=== PATIENT | male | born 1970 | race Caucasian/White ===

== ENCOUNTER 2020-06-23 17:52 | Outpatient (REF) | payer OTHER, SELFPAY | END 2020-06-23 17:53 | disposition home or self-care (01) | LOC: HO.LAB 17:52 | PROVIDERS: Visit Provider Internal Medicine | DX: Z20.828 Contact with and (suspected) exposure to other viral communicable diseases (principal) | CPT/HCPCS: U0003 ==

== ENCOUNTER 2020-06-29 11:56 | Outpatient (REF) | payer OTHER, SELFPAY | END 2020-06-29 11:57 | disposition home or self-care (01) | LOC: HO.LAB 11:56 | PROVIDERS: PCP Internal Medicine; Visit Provider Internal Medicine | DX: Z20.828 Contact with and (suspected) exposure to other viral communicable diseases (principal) | CPT/HCPCS: C9803; U0003 ==

== ENCOUNTER 2020-07-06 11:44 | Outpatient (REF) | payer OTHER, SELFPAY | END 2020-07-06 11:45 | disposition home or self-care (01) | LOC: HO.LAB 11:44 | PROVIDERS: PCP Internal Medicine; Visit Provider Internal Medicine | DX: Z20.828 Contact with and (suspected) exposure to other viral communicable diseases (principal) | CPT/HCPCS: C9803; U0003 ==

== ENCOUNTER 2020-07-12 14:41 | Outpatient (REF) | payer OTHER, SELFPAY | END 2020-07-12 14:42 | disposition home or self-care (01) | LOC: HO.LAB 14:41 | PROVIDERS: Visit Provider Internal Medicine | DX: Z20.828 Contact with and (suspected) exposure to other viral communicable diseases (principal) | CPT/HCPCS: C9803; U0003 ==

== ENCOUNTER 2020-09-06 16:21 | Outpatient (REF) | payer OTHER, SELFPAY | END 2020-09-06 16:22 | disposition home or self-care (01) | LOC: HO.LAB 16:21 | PROVIDERS: Visit Provider Internal Medicine | DX: Z20.822 Contact with and (suspected) exposure to COVID-19 (principal) | CPT/HCPCS: 36415; C9803; U0003 ==

== ENCOUNTER 2023-05-20 10:13 | Outpatient (AMB) | payer MEDICAID, SELFPAY ==
--- NOTE | 2023-05-20 10:15 | A.OFFVIS_ITS ---
Intake Vital Signs 05/20/23 10:28 Height 5 ft 6 in Weight 190 lb 0.615 oz BMI 30.7 BP 132/82 Blood Pressure Location Lt brachial Position Sitting Pulse 72 Intake Visit Reasons: Umbilical hernia Intake Note: Patient is seen in office for evaluation and treatment of an umbilical hernia. 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 He initially noted the lump approximately 4 months ago and now feels the lump is nearly always protruding. Reports occasional discomfort associated with the lump and reports hearing gas when the lump is reduced. He denies nausea, vomiting, fever or chills. He denies any bowel changes recently but is scheduled for colonoscopy and upper endoscopy with Dr. Fortune. He denies any previous abdominal surgery at this location. He is status post appendectomy as a child. [facility] Surgical History History of appendectomy Social History Alcohol intake: never Patient Tobacco Use Status: Current everyday Tobacco user Review of Systems Const All systems reviewed & are unremarkable except as noted in HPI and below Denies chills, Denies fever(s), Denies headache(s), Denies poor appetite and Denies weakness ENT Denies headache(s) Card Denies chest pain, Denies irregular heart rhythm, Denies palpitations and Denies dyspnea Resp Denies cough, Denies excessive phlegm production and Denies dyspnea GI Details: Palpable umbilical hernia measuring approximately 1 to 1.5 cm in diameter. Hernia is reducible with light pressure but returns with Valsalva maneuvers. No skin change or tenderness. Denies abdominal pain, Denies bloating, Denies change in bowel habits, Denies constipation, Denies heartburn, Denies diarrhea, Denies nausea and Denies vomiting Denies difficulty urinating and Denies urinary frequency Musc Denies back pain, Denies muscle weakness and Denies numbness Skin/Breast Denies changing lesions and Denies unusual bruising Neuro Denies headache(s), Denies numbness, Denies paresthesias and Denies weakness Psych Denies anxiety and Denies depression Endo Denies palpitations Dominick/Lymph Denies lymphadenopathy Physical Exam Vital Signs: Last Vital Signs Pulse 72 05/20/23 10:28 BMI result Body Mass Index 30.7 Const General: cooperative and no acute distress Nutritional Appearance: well nourished Orientation/consciousness: patient oriented x3 Limitations: no limitations HEENT Head: Yes normocephalic and Yes atraumatic Ears: hearing grossly normal bilaterally Resp Effort & Inspection: normal respiratory effort, no audible wheezes, no cough and no respiratory distress Cardio Jugular venous distension: no JVD GI Inspection: Yes normal to inspection Skin Other: Warm, dry, no rash Neuro General: patient oriented x3 Extrem General: Yes no clubbing, cyanosis or edema Assessment & Plan Assessment & Plan (1) Umbilical hernia: Code(s): K42.9 - Umbilical hernia without obstruction or gangrene Qualifiers: Obstruction and gangrene presence: without obstruction or gangrene Qualified Code(s): K42.9 - Umbilical hernia without obstruction or gangrene Plan 53-year-old male patient presenting for evaluation of an umbilical hernia initially noted approximately 4 months ago. On examination he is noted to have a 1.5 cm reducible umbilical hernia which is nontender to palpation. I recommended repair of this umbilical hernia on elective basis with mesh. After discussion of the procedure, risks, and alternatives, he consents to repair of the umbilical hernia with mesh. He understands that he will require approximately 1 month of no lifting greater than 10 lb following the surgery. Coding Level of Care Code New Pt Level 4 (20355) Diagnoses Umbilical hernia without obstruction and without gangrene K42.9 Obstruction and gangrene presence: without obstruction or gangrene
[2023-05-20 10:28] VITALS: BP 132/82; PULSE 72; BMI 30.7
== END 2023-05-20 10:35 | disposition home or self-care (01) ==
PROVIDERS: PCP Nurse Practitioner Primary Care; Visit Provider Surgery
DX: K42.9 Umbilical hernia without obstruction or gangrene (principal)
CPT/HCPCS: 99204

== ENCOUNTER → 2023-05-20 10:13 | Outpatient (BNVA) | payer MEDICAID, SELFPAY | PROVIDERS: PCP Nurse Practitioner Primary Care; Visit Provider Surgery ==

== ENCOUNTER 2023-05-28 05:54 | Day surgery (SDC) | payer MEDICAID, SELFPAY ==
[2023-05-28] VITALS (7 sets, daily range): BP systolic 125–149; BP diastolic 77–93; PULSE 64–84; RESP 12–18; TEMP 36.2–37.5; O2SAT 94–99; BMI 29.9
[2023-05-28] MEDS: Lactated Ringers 1,000 ML 100 ML IVCONT (06:35)
[2023-05-28] MEDS: Albuterol/Iprat 2.5/0.5MG 3 ML AMPUL.NEB INHALE (06:52)
--- NOTE | 2023-05-28 07:17 | HO.ANESPROP2 ---
HPI - Anesthesia Eval Consult details Narrative: for umbilical hernia repair PMFSH Active Problems Active Problems: All Active Problems (Updated 05/28/23 @ 06:18 by Damaris Carreon) Umbilical hernia (Acute) Past Medical History Medical History No pertinent past medical history Smoker Family History Family history of problems with anesthesia: No Surgical History Surgical History History of appendectomy History of Problems with Anesthesia: No Social History Social History Alcohol intake: never Patient Tobacco Use Status: Current everyday Tobacco user Tobacco use type: Cigarette Cigarettes Per Day: 15 Years Smoked: 30 Smoked in Last 30 Days: Yes Use of substances other than those prescribed or required for medical reasons: No Are you DNR?: No Advance Directives: No Advance Directives Information Provided: Yes Meds Allergies Allergy/AdvReac Type Severity Reaction Status Date / Time codeine [CODEINE] Allergy Intermediate RASH Verified 05/28/23 06:16 Active Medications: Current Medications Lactated Ringer's (Lr) 1,000 mls @ 100 mls/hr IVCONT .Q10H GEORGE Last Admin: 05/28/23 06:35 Dose: 100 mls/hr Home Medications Medication Instructions Recorded Confirmed Last Taken Type buprenorphine 8 mg-naloxone 2 mg 8 mg sublingual TID 05/20/23 05/28/23 05/28/23 History sublingual film (Suboxone) 8 mg gabapentin 800 mg tablet 800 mg PO TID PRN pain 05/20/23 05/28/23 05/28/23 History omeprazole 20 mg capsule,delayed 20 mg PO QAM 05/20/23 05/28/23 Unknown History release Exam Exam Date and Time: May 28, 2023 0717 Height,Weight and Vital Signs: Height 5 ft 6 in Weight 83.915 kg Last Vital Signs Temp 99.5 F 05/28/23 06:23 Pulse 64 05/28/23 06:54 Resp 12 05/28/23 06:54 BP 149/91 H 05/28/23 06:23 Pulse Ox 95 05/28/23 06:23 O2 Del Method Room Air 05/28/23 06:23 Airway Mallampati Class: II TM Dist: >3cm Neck ROM: Full Denture: Upper and Lower Heart: ok Lungs: ok Assessment and Plan Assessment Anesthesia Assessment: Anesthesia Plan Discussed and Chart Reviewed Final Anesthetic Review Family History of Problems with Anesthesia: No History of Problems with Anesthesia: No NPO: Yes ASA Class: III Final Preanesthetic Review: No Changes in Pt Med Stat, Meds/Allgs Chart Reviewed, Consent Obtained/Reviewed and Anes Risks/Benef Reviewed Patient Risk: Intermediate Procedure Risk: Low Anesthetic Plan Anesthetic Plan: GA and Agree w/ Assess. and Plan Disposition: Standard PACU
--- NOTE | 2023-05-28 07:32 | MHC.SHP ---
Pre-Procedural Eval Section A Date of Service: 05/28/23 The patient is an INPATIENT: No Changes since office visit: Yes Patient answered all questions; No Cold of Flu in the past 2 weeks, No New Medical Problems and No Changes in Medication The History & Physical has been completed within 30 days and I have reviewed it.: Yes Section B Chief Complaint: Umbilical hernia without obstruction or gangrene Allergies: Allergies Allergy/AdvReac Type Severity Reaction Status Date / Time codeine [CODEINE] Allergy Intermediate RASH Verified 05/28/23 06:16 Plan Diagnosis/Plan: Unchanged I have reviewed the history and physical and performed a pertinent physical examination on my patient. No changes have occurred unless specified. Time Spent With Patient Time: Total time managing care of this patient today ____ minutes.
--- NOTE | 2023-05-28 08:20 | W.PM.OPN ---
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 On examination he has a 2.5 cm fascial defect and hernia that is easily reducible with light pressure. Operative findings: 2.5 cm umbilical hernia repaired using a 6.4 cm round Ventralex mesh. Specimen: None Estimated blood loss: less than 2 mL Complications: none Procedure details: patient was brought to the OR and placed in a supine position. After administering general anesthesia patient's abdomen was prepped with ChloraPrep and draped in a sterile fashion. A surgical time-out was called the consent confirmed. Patient received preoperative antibiotics and Venodyne boots were in place. Local anesthesia consisting of 0.5% Sensorcaine with epinephrine was then infiltrated around the umbilicus. A curvilinear incision was made above the umbilicus oriented transversely and carried out through subcutaneous tissue down to the hernia sac. The umbilical skin was lifted off the fascia using electrocautery. The fascial defect was further defined circumferentially and the contents reduced. A preperitoneal space was then created below the fascia. The peritoneum was not entered. A 6.4 cm round Ventralex mesh was then obtained and deployed within the preperitoneal space. This was secured in 4 quadrants using a 1 Tycron suture. The fascia was then closed over the mesh using [id number] 1 Tycron sutures. Additional local was infiltrated in the fascia this time. Wounds were then irrigated and suction dry. The umbilical skin was then reattached to the fascia using a 3-0 Polysorb suture. Dermis was reapproximated using 3-0 Polysorb sutures . Skin was then closed using a running subcuticular 4-0 Polysorb suture. Sterile dressings consisting of Steri-Strips, 2 x 2 gauze and Tegaderm were then applied. Patient tolerated the procedure well. Sponge, instrument, and needle counts reported as correct. The patient was transferred to PACU in stable condition.
[2023-05-28] MEDS: oxyCODONE HCl Immed Release 5 MG TABLET 10 MG PO (08:53)
== END 2023-05-28 10:05 | disposition home or self-care (01) ==
PROVIDERS: PCP Nurse Practitioner Primary Care; Visit Provider Surgery
PROC: (CPT 49591; principal; 2023-05-28 07:30)
DX: K42.9 Umbilical hernia without obstruction or gangrene (principal); Z79.899 Other long term (current) drug therapy; Z88.5 Allergy status to narcotic agent; F17.210 Nicotine dependence, cigarettes, uncomplicated
CPT/HCPCS: 49591; 94640; C1781; J0690; J1885; J2250; J2405; J3010

== ENCOUNTER → 2023-05-28 05:54 | Outpatient (BNV) | payer MEDICAID, SELFPAY | PROVIDERS: PCP Nurse Practitioner Primary Care; Visit Provider Surgery | DX: K42.9 Umbilical hernia without obstruction or gangrene (principal) | CPT/HCPCS: 49593 ==

== ENCOUNTER 2023-06-12 11:46 | Outpatient (AMB) | payer MEDICAID, SELFPAY ==
--- NOTE | 2023-06-12 11:47 | MHC.OFFVIS ---
Intake Intake Visit Reasons: S/P umbilical hernia w/mesh Intake Note: This patient of Dr. Gilbert presents for a post-op assessment status post repair of umbilical hernia with mesh. Patient c/o; reports occasional soreness, reports went back to work 4 days post-op on light duty. 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 Gilbert last May 28, 2023. He tolerated the procedure well. He currently denies significant complaints. He denies severe pain on the incision. He says he feels well overall. [facility] Medical History No pertinent past medical history Smoker Surgical History H/O umbilical hernia repair (05/28/23) History of appendectomy Social History Alcohol intake: never Patient Tobacco Use Status: Current everyday Tobacco user Tobacco use type: Cigarette Cigarettes Per Day: 15 Years Smoked: 30 Review of Systems Const Denies chills and Denies fever(s) Card Denies chest pain, Denies dyspnea and Denies dyspnea on exertion Resp Denies cough, Denies dyspnea and Denies dyspnea on exertion GI Denies hematochezia and Denies change in bowel habits Denies hematuria and Denies difficulty urinating Musc Denies back pain and Denies limited range of motion Neuro Denies focal weakness and Denies convulsions Psych Denies depression and Denies mood swings Physical Exam Const General: comfortable and no acute distress Resp Effort & Inspection: normal respiratory effort GI Other: Incision is well healed, repair site is intact, no evidence of infection Palpation (GI): Soft to palpation, not firm and nontender Assessment & Plan Assessment & Plan (1) Umbilical hernia: Code(s): K42.9 - Umbilical hernia without obstruction or gangrene Qualifiers: Obstruction and gangrene presence: without obstruction or gangrene Qualified Code(s): K42.9 - Umbilical hernia without obstruction or gangrene Plan: Status post repair of umbilical hernia with mesh by Dr. Gilbert. He is doing very well postoperatively. The repair site is intact. The incision is well healed. I advised him to avoid any lifting more than 20 lb for at least 2 more weeks. He can otherwise follow up on a p.r.n. basis. Coding Level of Care Code Global (47954) Diagnoses Umbilical hernia without obstruction and without gangrene K42.9 Obstruction and gangrene presence: without obstruction or gangrene
== END 2023-06-12 11:55 | disposition home or self-care (01) ==
PROVIDERS: PCP Nurse Practitioner Primary Care; Visit Provider Surgery
DX: K42.9 Umbilical hernia without obstruction or gangrene (principal)
CPT/HCPCS: 99213

== ENCOUNTER → 2023-06-12 11:46 | Outpatient (BNVA) | payer MEDICAID, SELFPAY | PROVIDERS: PCP Nurse Practitioner Primary Care; Visit Provider Surgery | DX: Z48.815 Encounter for surgical aftercare following surgery on the digestive system (principal); Z87.19 Personal history of other diseases of the digestive system | CPT/HCPCS: 99212 ==

== ENCOUNTER 2023-06-27 10:37 | Outpatient (AMB) | payer MEDICAID, SELFPAY ==
--- NOTE | 2023-06-27 10:39 | MHC.OFFVIS ---
Intake Vital Signs 06/27/23 10:53 Height 5 ft 6 in Weight 191 lb 6 oz BMI 30.9 BP 139/86 Blood Pressure Location Lt brachial Position Sitting Pulse 77 Intake Visit Reasons: S/P umbilical hernia w/mesh, pain and lump Intake Note: Patient is seen in office for wound check, post umbilical hernia repair. 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 He tolerated the procedure well returns today for follow-up examination. [facility] Medical History No pertinent past medical history Smoker Surgical History H/O umbilical hernia repair (05/28/23) History of appendectomy Social History Alcohol intake: never Patient Tobacco Use Status: Current everyday Tobacco user Tobacco use type: Cigarette Cigarettes Per Day: 15 Years Smoked: 30 Physical Exam Const General: healthy appearing Nutritional Appearance: well nourished Orientation/consciousness: patient oriented x3 Limitations: no limitations Resp Effort & Inspection: normal respiratory effort, no audible wheezes, no cough and no respiratory distress GI Other: Well-healed periumbilical incision without redness or discharge. No hernia noted with Valsalva maneuvers. There is some superficial redness in the incision suggestive of a dermatitis. Underlying scar tissue/healing ridge is identified but no abscess. Skin Other: Warm, dry, no rash Neuro General: patient oriented x3 Extrem General: Yes no clubbing, cyanosis or edema Assessment & Plan Assessment & Plan (1) Umbilical hernia: Code(s): K42.9 - Umbilical hernia without obstruction or gangrene Qualifiers: Obstruction and gangrene presence: without obstruction or gangrene Qualified Code(s): K42.9 - Umbilical hernia without obstruction or gangrene Plan 53-year-old male patient returning 1 month following repair of an umbilical hernia with mesh. No hernia recurrence is identified however there is some redness in the incision which appears more a dermatitis the an infection. I recommended starting prophylactic antibiotic and applying topical bacitracin twice daily. He should follow up 1 week. Medications: New cephalexin 500 mg PO Q8H 10 days 30 caps 0RF Discontinued oxycodone Partial Fill upon patient request. Discontinued Reason: Patient no longer taking 5 mg PO Q6H PRN 15 tabs 0RF pain (scale score 7-10) Coding Level of Care Code Global (66484) Diagnoses Umbilical hernia without obstruction and without gangrene K42.9 Obstruction and gangrene presence: without obstruction or gangrene
[2023-06-27 10:53] VITALS: BP 139/86; PULSE 77; BMI 30.9
== END 2023-06-27 10:58 | disposition home or self-care (01) ==
PROVIDERS: PCP Nurse Practitioner Primary Care; Visit Provider Surgery
DX: L76.82 Other postprocedural complications of skin and subcutaneous tissue (principal); K42.9 Umbilical hernia without obstruction or gangrene; Z09 Encounter for follow-up examination after completed treatment for conditions other than malignant neoplasm
CPT/HCPCS: 99214

== ENCOUNTER → 2023-06-27 10:37 | Outpatient (BNVA) | payer MEDICAID, SELFPAY | PROVIDERS: PCP Nurse Practitioner Primary Care; Visit Provider Surgery | DX: K42.9 Umbilical hernia without obstruction or gangrene (principal) | CPT/HCPCS: 99212 ==

== ENCOUNTER 2023-07-03 13:44 | Outpatient (AMB) | payer MEDICAID, SELFPAY ==
--- NOTE | 2023-07-03 14:01 | MHC.OFFVIS ---
Intake Vital Signs 07/03/23 14:03 Height 5 ft 6 in Weight 189 lb 6 oz BMI 30.6 BP 194/92 H Blood Pressure Location Lt brachial Position Standing Pulse 87 Intake Visit Reasons: 1 wk check umbilical hernia w/mesh, pain and lump Intake Note: Patient is seen in office for one week follow up visit, post umbilical hernia repair. 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 He developed some redness in the incision which appeared to be a contact dermatitis. He was seen last week and started on oral antibiotics. The patient reports he did not start taking the antibiotics until Friday this week. He does note a decrease in the pain and redness. He feels much improved. [facility] Medical History No pertinent past medical history Smoker Surgical History H/O umbilical hernia repair (05/28/23) History of appendectomy Social History Alcohol intake: never Patient Tobacco Use Status: Current everyday Tobacco user Tobacco use type: Cigarette Cigarettes Per Day: 15 Years Smoked: 30 Physical Exam Const General: healthy appearing Nutritional Appearance: well nourished Orientation/consciousness: patient oriented x3 Limitations: no limitations Resp Effort & Inspection: normal respiratory effort, no audible wheezes, no cough and no respiratory distress GI Other: Well-healed periumbilical incision with areas of contact dermatitis perhaps from adhesive. No cellulitis is appreciated. No hernia noted with Valsalva maneuvers. Skin Other: Warm, dry, no rash Neuro General: patient oriented x3 Extrem General: Yes no clubbing, cyanosis or edema Assessment & Plan Assessment & Plan (1) Umbilical hernia: Code(s): K42.9 - Umbilical hernia without obstruction or gangrene Qualifiers: Obstruction and gangrene presence: without obstruction or gangrene Qualified Code(s): K42.9 - Umbilical hernia without obstruction or gangrene Plan Status post repair of an umbilical hernia with mesh. The previous contact dermatitis is much improved with the oral antibiotic. He may resume normal activity in 1 week and should follow up as needed. He may lift 20 lb currently. Coding Level of Care Code Global (80728) Diagnoses Umbilical hernia without obstruction and without gangrene K42.9 Obstruction and gangrene presence: without obstruction or gangrene
[2023-07-03 14:03] VITALS: BP 194/92; PULSE 87; BMI 30.6
== END 2023-07-03 14:12 | disposition home or self-care (01) ==
PROVIDERS: PCP Nurse Practitioner Primary Care; Visit Provider Surgery
DX: K42.9 Umbilical hernia without obstruction or gangrene (principal)
CPT/HCPCS: 99213

== ENCOUNTER → 2023-07-03 13:44 | Outpatient (BNVA) | payer MEDICAID, SELFPAY | PROVIDERS: PCP Nurse Practitioner Primary Care; Visit Provider Surgery | DX: K42.9 Umbilical hernia without obstruction or gangrene (principal) | CPT/HCPCS: 99212 ==